=== PATIENT | female | born 1985 | race Two or more races ===

== ENCOUNTER 2023-08-19 17:07 | Inpatient (IN) | payer BC, SELFPAY ==
[2023-08-19] VITALS (20 sets, daily range): BP systolic 96–145; BP diastolic 55–92; PULSE 95–122; TEMP 36.8–39.5; O2SAT 96–100; BMI 25.6; BMI 26.7
--- NOTE | 2023-08-19 17:21 | ECG_ITS ---
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
--- NOTE | 2023-08-19 17:22 | ED.FEVER1 ---
HPI - Fever General Chief Complaint: Urogenital-Female Stated Complaint: POSS KIDNEY STONE/SEPSIS PER URGENT CARE Time Seen by Provider: 08/19/23 17:12 Source: patient Mode of arrival: walk-in Limitations: no limitations History of Present Illness HPI Narrative: 38-year-old female presents for not feeling well. Symptoms began yesterday and she has a pain in her right lower back. She went to an urgent care center and they told her she does not have a UTI after testing her urine and that she should go to the emergency department. She has had no vomiting or diarrhea. She does not complain of chest pain or cough. She has not had any antipyretics today and was noted to have a fever at triage, 100.5. Related Data Home Medications ?Medication ?Instructions ?Recorded ?Confirmed buspirone 15 mg tablet 30 mg PO BID 08/19/23 08/19/23 hydroxyzine HCl 50 mg tablet 50 mg PO Q8H PRN anxiety 08/19/23 08/19/23 trazodone 50 mg tablet 50 mg PO BEDTIME PRN insomnia 08/19/23 08/19/23 Allergies Allergy/AdvReac Type Severity Reaction Status Date / Time No Known Drug Allergies Allergy Verified 08/19/23 17:09 Review of Systems ROS Narrative A ten point review of systems is negative except as noted above. Exam Narrative Exam Narrative: Nurses note and vital signs reviewed and patient is not hypoxic. General: The patient appears well and in no apparent distress. Patient is resting comfortably on cart. Skin: Warm, dry, no pallor noted. There is no rash noted. Head: Normocephalic, atraumatic Eye: Normal conjunctiva, no drainage Ears, Nose, Mouth, and Throat: oral mucosa is moist. Nares patent. Cardiovascular: Regular Rate and Rhythm, tach Respiratory: Patient is in no distress, no accessory muscle use, lungs are clear to auscultation, no wheezing, rales or rhonchi Back: non-tender, no CVA tenderness bilaterally to percussion. GI: Minimal diffuse tenderness without distention or guarding Musculoskeletal: The patient has no evidence of calf tenderness, no pitting edema, symmetrical pulses noted bilaterally Neurological: A&O, normal speech Psychiatric: Cooperative Constitutional Vital Signs, click to edit/add: Last Vital Signs Temp 102.5 F H 08/19/23 18:44 Pulse 100 H 08/19/23 18:30 Resp 14 08/19/23 18:30 BP 129/79 08/19/23 18:30 Pulse Ox 100 08/19/23 18:00 O2 Del Method Room Air 08/19/23 17:11 Course Vital Signs Vital signs: Vital Signs Temperature 100.5 F H 08/19/23 17:11 Pulse Rate 121 H 08/19/23 17:11 Respiratory Rate 18 08/19/23 17:11 Blood Pressure 145/90 H 08/19/23 17:11 Pulse Oximetry 99 08/19/23 17:11 Oxygen Delivery Method Room Air 08/19/23 17:11 Temperature 102.5 F H 08/19/23 18:44 Pulse Rate 100 H 08/19/23 18:30 Respiratory Rate 14 08/19/23 18:30 Blood Pressure 129/79 08/19/23 18:30 Pulse Oximetry 100 08/19/23 18:00 Oxygen Delivery Method Room Air 08/19/23 17:11 MDM - Fever MDM Narrative Medical decision making narrative: COVID and influenza test are negative WBC is 12.9. Urinalysis suggest UTI and culture was ordered and she was ordered IV Rocephin. CT scan is ordered and is pending and the patient is signed out to Dr. Diallo. Differential Diagnosis Differential diagnosis: Likely fever of unknown origin, pyelonephritis, viral infection, influenza and other (COVID, UTI) Lab Data Attestation: I reviewed the patient's lab results. Labs: Lab Results 08/19/23 08/19/23 08/19/23 Range/Units 17:21 17:28 18:05 WBC 12.9 H (4.0-11.0) 10^3/uL RBC 4.23 (4.20-5.40) 10^6/uL Hgb 12.2 (12.0-16.0) g/dL Hct 37.4 (36.0-48.0) % MCV 88.4 (81.0-99.0) fL MCH 28.8 (26.7-34.0) pg MCHC 32.6 (29.9-35.2) g/dL RDW 14.0 (11.0-15.0) % Plt Count 180 (150-450) 10^3/uL MPV 9.6 (9.5-13.5) fL Neut % (Auto) 84.8 H (43.0-75.0) % Lymph % (Auto) 7.1 L (20.5-60.0) % [place] % (Auto) 7.4 (1.7-12.0) % Eos % (Auto) 0.0 L (0.9-7.0) % Baso % (Auto) 0.3 (0.2-2.0) % Neut # (Auto) 10.9 H (1.4-6.5) 10^3/uL Lymph # (Auto) 0.9 L (1.2-3.8) 10^3/uL [place] # (Auto) 1.0 H (0.3-0.8) 10^3/uL Eos # (Auto) 0.0 (0.0-0.7) 10^3/uL Baso # (Auto) 0.0 (0.0-0.1) 10^3/uL Abs Immat Gran (auto) 0.05 H (0.00-0.03) 10^3/uL Imm/Tot Granulo (auto) 0.4 (0.0-0.5) % Sodium 140 (136-145) mmol/L Potassium 3.2 L (3.5-5.1) mmol/L Chloride 102 (98-107) mmol/L Carbon Dioxide 30.6 (21.0-32.0) mmol/L Anion Gap 10.6 BUN 7.0 (7.0-18.0) mg/dL Creatinine 0.91 (0.55-1.02) mg/dL Est GFR ( Amer) >60 (>=60) Est GFR (Non-Af Amer) >60 (>=60) BUN/Creatinine Ratio 7.7 Glucose 106 (74-106) mg/dL Calcium 9.3 (8.5-10.1) mg/dL Urine Color Lt. yellow (YELLOW) Urine Clarity Clear (CLEAR) Urine pH 7.0 (5.0-9.0) Ur Specific [place] 1.010 (1.005-1.025) Urine Protein Trace (NEG/TRACE) mg/dL Urine Glucose (UA) Negative (NEGATIVE) mg/dL Urine Ketones Negative (NEGATIVE) mg/dL Urine Occult Blood Small A (NEGATIVE) Urine Nitrite Negative (NEGATIVE) Urine Bilirubin Negative (NEGATIVE) Urine Urobilinogen 1.0 (0.2-1.0) EU/dL Ur Leukocyte Esterase Large A (NEGATIVE) Urine RBC 2-5 A (0-2) #/HPF Urine WBC 10-20 A (NONE SEEN) #/HPF Ur Squamous Epith Cells Rare (NONE/RARE) #/LPF Urine Crystals None seen (None Seen) #/HPF Urine Bacteria Small A (NONE SEEN) #/HPF Urine Casts None seen (NONE SEEN) #/LPF Urine Mucus None seen (NONE SEEN) Influenza Type A Ag Negative Influenza Type B Ag Negative SARS-CoV-2 Ag (CV2AG) Negative (NEGATIVE) ECG Data Attestation: I personally reviewed and interpreted this ECG as follows: (EKG on my interpretation shows sinus tachycardia with a rate of 113.) Discharge Plan Discharge Patient Disposition: Still a Patient
[2023-08-19 17:39] LABS: Basophils Percent Auto 0.3 % (0.2-2.0); Hematocrit 37.4 % (36.0-48.0); Hemoglobin 12.2 g/dL (12.0-16.0); Immature Granulocytes Abs Auto 0.05 10^3/uL (0.00-0.03); Immature Granulocytes Pct Auto 0.4 % (0.0-0.5); Lymphocytes Absolute Auto 0.9 10^3/uL (1.2-3.8); Lymphocytes Percent Auto 7.1 % (20.5-60.0); Mean Corpuscular HGB Conc 32.6 g/dL (29.9-35.2); Mean Corpuscular Hemoglobin 28.8 pg (26.7-34.0); Mean Corpuscular Volume 88.4 fL (81.0-99.0); Mean Platelet Volume 9.6 fL (9.5-13.5); Monocytes Percent Auto 7.4 % (1.7-12.0); Neutrophils Absolute Auto 10.9 10^3/uL (1.4-6.5); Neutrophils Percent Auto 84.8 % (43.0-75.0); Platelet Count 180 10^3/uL (150-450); Red Blood Count 4.23 10^6/uL (4.20-5.40); White Blood Count 12.9 10^3/uL (4.0-11.0)
[2023-08-19] MEDS: 0.9 % SODIUM CHLORIDE 1,000 ML 1000 ML IV (17:45)
[2023-08-19 17:47] LABS: Anion Gap 10.6; BUN Creatinine Ratio 7.7; Calcium 9.3 mg/dL (8.5-10.1); Carbon Dioxide 30.6 mmol/L (21.0-32.0); Chloride 102 mmol/L (98-107); Estimated GFR (African America >60 (>=60); Estimated GFR (Non-African Ame >60 (>=60); Glucose 106 mg/dL (74-106); Potassium 3.2 mmol/L (3.5-5.1); Sodium 140 mmol/L (136-145)
[2023-08-19 17:50] LABS: Influenza Virus A Antigen Negative; Influenza Virus B Antigen Negative; Internal Control Within Normal Limits; SARS-CoV-2 Ag NEGATIVE (NEGATIVE)
[2023-08-19 18:13] LABS: Bilirubin Urine NEGATIVE (NEGATIVE); Blood Urine SMALL (NEGATIVE); Clarity Urine CLEAR (CLEAR); Color Urine LT. YELLOW (YELLOW); Glucose Urine UA NEGATIVE (NEGATIVE); Ketones Urine NEGATIVE (NEGATIVE); Leukocyte Esterase Urine LARGE (NEGATIVE); Nitrite Urine NEGATIVE (NEGATIVE); Protein Urine TRACE mg/dL (NEG/TRACE)
[2023-08-19 18:19] LABS: Bacteria Urine SMALL #/HPF (NONE SEEN); Cast Seen? NONE SEEN #/LPF (NONE SEEN); Crystals Seen? None Seen #/HPF (None Seen); Mucus Urine NONE SEEN (NONE SEEN); Squamous Epithelial Cell Urine RARE #/LPF (NONE/RARE)
[2023-08-19] MEDS: IBUPROFEN 400 MG TABLET 800 MG PO (18:44)
--- NOTE | 2023-08-19 18:48 | CT_ITS ---
[address] [address] Patient Name: GREG GOODMAN MRN: [id number] date: 1985 Sex: F Assigned Patient Location: ER Current Patient Location: ER Accession/Order Number: [id number] Exam Date: 08/19/2023 19:10 Report Date: 08/19/2023 19:55 At the request of: WINTER RITCHIE Procedure: CT abdomen pelvis w con EXAM: CT abdomen pelvis w con; [id number] REASON FOR EXAM: Fever, UTI, rule out pyelonephritis TECHNIQUE: Helical CT images of the abdomen and pelvis were obtained after the administration of IV contrast. Multiplanar reformats were generated at the scanner. Dose reduction technique used: Automated exposure control and/or adjustment of the mA and/or kV according to patient size and/or use of iterative reconstruction technique. COMPARISON: None. FINDINGS: Visualized Chest: No pleural effusion or any significant pulmonary findings. Abdomen: Liver: Mild focal fatty infiltration along the falciform ligament. Borderline hepatomegaly. Gallbladder: No calcified gallstones. No acute inflammatory changes. Bile Ducts: No significant biliary ductal dilatation. Pancreas: No mass, ductal dilatation, or inflammatory changes. Spleen: No splenomegaly or focal lesion. Adrenals: No nodules. Kidneys: -Moderate multifocal ill-defined hypoattenuation of the right kidney which is most notable in the posterior medial aspect of the right lower pole (series 3 image 47 and the upper pole (series 3 image 53). No evidence of drainable abscess. The largest area of hypoattenuation measures 1.5 cm in diameter. -No stones or hydronephrosis. -No abnormal parenchymal hypoattenuation in the left kidney. Vascular: No aortic aneurysm. Lymph Nodes: No adenopathy. Abdominal Wall: Trace fat-containing umbilical hernia. Pelvis: Probable uterine fibroid measuring 3.3 cm. No filling defect within the bladder lumen. Bowel/Peritoneal Cavity/Mesentery: -No bowel obstruction or significant ileus. -No acute inflammatory changes. -No free air or free fluid. Musculoskeletal: No acute fracture or suspicious osseous lesion. CT/CT abdomen pelvis w con IMPRESSION: Moderate multifocal pyelonephritis of the right kidney. Electronically authenticated by: DANIELLE HERNANDEZ Date: 08/19/2023 19:55
[2023-08-19] MEDS: CEFTRIAXONE 1,000 MG in 0.9 % SODIUM CHLORIDE 50 ML 100 MG IV (18:52)
[2023-08-19] MEDS: ACETAMINOPHEN 500 MG TABLET 1000 MG PO (20:08)
[2023-08-19 20:14] LABS: Acetaminophen <2.0 ug/mL (10.0-30.0)
[2023-08-19 20:46] LABS: Lactate/Lactic Acid 1.4 mmol/L (0.4-2.0)
[2023-08-19 21:02] LABS: PROCALCITONIN 0.14 ng/mL (0.00-0.50)
[2023-08-19] MEDS: KETOROLAC TROMETHAMINE 30 MG/ML VIAL 15 MG IVP (21:52)
[2023-08-19] MEDS: POTASSIUM CHLORIDE-0.45% NACL 1,000 ML 125 MEQ IV (23:34)
[2023-08-19] MEDS: POTASSIUM CHLORIDE 10 MEQ ER TABLET 40 MEQ PO (23:34)
[2023-08-20] VITALS (19 sets, daily range): BP systolic 89–115; BP diastolic 56–75; PULSE 77–114; TEMP 36.4–38.6; O2SAT 98–100
[2023-08-20 04:40] LABS: Basophils Percent Auto 0.2 % (0.2-2.0); Eosinophils Absolute Auto 0.1 10^3/uL (0.0-0.7); Eosinophils Percent Auto 0.4 % (0.9-7.0); Hemoglobin 10.4 g/dL (12.0-16.0); Immature Granulocytes Abs Auto 0.04 10^3/uL (0.00-0.03); Immature Granulocytes Pct Auto 0.4 % (0.0-0.5); Lymphocytes Absolute Auto 1.5 10^3/uL (1.2-3.8); Lymphocytes Percent Auto 13.2 % (20.5-60.0); Mean Corpuscular HGB Conc 31.5 g/dL (29.9-35.2); Mean Corpuscular Hemoglobin 28.7 pg (26.7-34.0); Mean Corpuscular Volume 91.2 fL (81.0-99.0); Mean Platelet Volume 9.8 fL (9.5-13.5); Monocytes Absolute Auto 0.9 10^3/uL (0.3-0.8); Neutrophils Absolute Auto 8.7 10^3/uL (1.4-6.5); Neutrophils Percent Auto 77.8 % (43.0-75.0); Platelet Count 151 10^3/uL (150-450); Red Blood Count 3.62 10^6/uL (4.20-5.40); Red Cell Distribution Width 14.1 % (11.0-15.0); White Blood Count 11.2 10^3/uL (4.0-11.0)
[2023-08-20 04:54] LABS: Alanine Aminotransferase 79 U/L (14-59); Albumin Globulin Ratio 0.7; Albumin Level 2.4 g/dL (3.4-5.0); Alkaline Phosphatase 72 U/L (46-116); Aspartate Amino Transferase 86 U/L (15-37); BUN Creatinine Ratio 10.5; Bilirubin Total 0.2 mg/dL (0.2-1.0); Calcium 8.4 mg/dL (8.5-10.1); Carbon Dioxide 24.7 mmol/L (21.0-32.0); Chloride 108 mmol/L (98-107); Estimated GFR (African America >60 (>=60); Estimated GFR (Non-African Ame >60 (>=60); Globulin 3.3 g/dL; Glucose 121 mg/dL (74-106); Potassium 3.7 mmol/L (3.5-5.1); Sodium 140 mmol/L (136-145); Total Protein 5.7 g/dL (6.4-8.2)
[2023-08-20] MEDS: POTASSIUM CHLORIDE-0.45% NACL 1,000 ML 125 MEQ IV ×2 (07:35→15:37)
--- NOTE | 2023-08-20 07:35 | P.HP_ITS ---
HPI H&P: HPI History of Present Illness Chief complaint: POSS KIDNEY STONE/SEPSIS URG CARE, PYELONEPHRITIS Narrative: Patient is a 38 y.o. female with past medical history of depression/anxiety. Was in her normal state of health until 2 days ago when she developed a fever, urinary urgency, burning. She presented to outside urgent Care facility where a UA was performed and she was told she did not have an infection. She continued to feel bad so presented to the ER last night. She was found to have elevated WBC's, fever of 102 degrees, and a CT scan consistent with right side pyelonephritis. UA was positive for infection and cultures including urine are pending. She was admitted with acute pyelonephritis. Overnight staff had some issues controlling her temp and she was given Toradol which helped. This morning she has improved right flank pain, no fever, and no nausea or vomiting. She has no history of pyelo or renal stones. I also discussed with patient and incidental findings of urterin fibroid of 3.3 cm and also fatty liver changes that were seen on CT. No other issues or concerns today. Opioid HPI Opioid Management Most Recent Opioid Data: Last Pain Scale 3 08/20/23 10:11 Last Pain Assessment 08/20/23 10:11 Last ORT Total Score 3 08/19/23 21:04 Last ORT Risk Category Low Risk 08/19/23 21:04 Review of Systems ROS Narrative ROS: a complete review of systems were reviewed with patient and are positive as below or listed in History of Chief Complaint. General: fever, and chills, no night sweats Head: no headache, trauma, visual changes, nausea or vomiting Skin: no reported rashes, itching or sores Eyes: no blurriness of vision Ears: no reported hearing loss, vertigo, earache, or tinnitus Throat: no sore throat, hoarseness, swelling of neck, or tongue pain Heart: no chest pain Lungs: no shortness of breath or cough GI: no diarrhea or vomiting/nausea Urinary: urinary urgency, frequency and pain, right flank pain Neuro: no numbness or tingling HEM: no bleeding issues or bruising ENDO: no thyroid problems Psych: no anxiety or depression PFSH [facility] Medical History (Updated 08/20/23 @ 10:37 by Magalie Duke DO) Major depressive disorder ?F32.9 - Major depressive disorder, single episode, unspecified (ICD-10) Surgical History H/O tubal ligation ?Z98.51 - Tubal ligation status (ICD-10) Family History Other Family history of cancer Family history of diabetes mellitus Social History Within the past year, how often did you have a drink containing alcohol: monthly or less Within the past year, how many standard drinks containing alcohol did you have on a typical day: 1 or 2 Within the past year, how often did you have six or more drinks on one occasion: less than monthly Total score: 1 Score interpretation: A score less than 3 is consistent with normal alcohol consumption. Smoking status: Never smoker Non-prescribed substance use: denies use Previous occupational history: [employer] Highest level of school completed/degree received: Associate degree: occupational, technical, vocational program Are you now , , , , never or living with a partner: In a typical week, how many times do you talk on the telephone with family, friends, or neighbors: 3 or more times per week How often do you get together with friends or relatives: 3 or more times per week Little interest or pleasure in doing things: several days Feeling down, depressed, or hopeless: several days Feel stressed/tense/nervous/anxious/difficulty sleeping: rather much Do you think of yourself as: straight/heterosexual Gender Identity: female Meds Home Medications and Allergies Home Medications ?Medication ?Instructions ?Recorded ?Confirmed ?Type buspirone 15 mg tablet 30 mg PO BID 08/19/23 08/19/23 History hydroxyzine HCl 50 mg tablet 50 mg PO DAILY PRN anxiety 08/19/23 08/20/23 History trazodone 50 mg tablet 50 mg PO BEDTIME PRN insomnia 08/19/23 08/19/23 History levomilnacipran 40 mg capsule,24 60 mg PO DAILY 08/20/23 08/20/23 History hr,extended release (Fetzima) Allergies Allergy/AdvReac Type Severity Reaction Status Date / Time No Known Drug Allergies Allergy Verified 08/19/23 17:09 Exam Narrative Exam Narrative: General: Patient is alert, and oriented to person, place and time with normal affect, proper hygiene Skin: no visible rashes, or ulcers Head: atraumatic, acephalic Eyes: PERRLA, no nystagmus present, conjunctiva clear, no scleral icterus Ears: normal gross auditory acuity Nose: symmetric, no discharge, no maxillary or frontal sinus tenderness Heart: Normal rate and rhythm, no murmurs/rubs/gallops Lungs: no audible wheezes, crackles and normal breath sounds all lung tee Abdomen: Normal audible bowel sounds, no distension, No palpable masses, no organomegaly, tenderness to palpation suprapubic Musculoskeletal: no swelling bilateral lower extremities Neuro: CN II-X grossly intact Constitutional Vital Signs, click to edit/add: Last Vital Signs Temp 97.6 F 08/20/23 04:00 Pulse 87 08/20/23 06:00 Resp 16 08/20/23 04:00 BP 89/56 08/20/23 04:00 Pulse Ox 98 08/20/23 04:00 O2 Del Method Room Air 08/20/23 04:00 Results Labs Labs: Short CBC 08/19/23 08/20/23 Range/Units 17:21 04:20 WBC 12.9 H 11.2 H (4.0-11.0) 10^3/uL Hgb 12.2 10.4 L (12.0-16.0) g/dL Hct 37.4 33.0 L (36.0-48.0) % Plt Count 180 151 (150-450) 10^3/uL BMP 08/19/23 08/20/23 17:21 04:20 Sodium 140 140 Potassium 3.2 L 3.7 Chloride 102 108 H Carbon Dioxide 30.6 24.7 BUN 7.0 9.0 Creatinine 0.91 0.86 Glucose 106 121 H Calcium 9.3 8.4 L Liver Function 08/20/23 Range/Units 04:20 Total Bilirubin 0.2 (0.2-1.0) mg/dL AST 86 H (15-37) U/L ALT 79 H (14-59) U/L Alkaline Phosphatase 72 (46-116) U/L Albumin 2.4 L (3.4-5.0) g/dL Urine 04/19/24 Range/Units 18:05 Urine Color Lt. yellow (YELLOW) Urine Clarity Clear (CLEAR) Urine pH 7.0 (5.0-9.0) Ur Specific [place] 1.010 (1.005-1.025) Urine Protein Trace (NEG/TRACE) mg/dL Urine Glucose (UA) Negative (NEGATIVE) mg/dL Assessment and Plan Assessment and Plan (1) Acute pyelonephritis due to bacteria: Assessment and Plan: as seen on CT, cultures pending, continue on Rocephin. WBC's improved from 12.9 to 11.2. (2) Sepsis: Assessment and Plan: fever, tachycardia, leukocytosis, hypotension; secondary to #1, received IVF, and IV antibiotics. Qualifiers: Sepsis type: sepsis due to unspecified organism Sepsis acute organ dysfunction status: without acute organ dysfunction Qualified Code(s): A41.9 - Sepsis, unspecified organism (3) Major depressive disorder: Assessment and Plan: continue fetzima, vistaril, buspar, trazodone. Qualifiers: Major depression recurrence: unspecified whether recurrent Active/R emission status: remission status unspecified Qualified Code(s): F32.9 - Major depressive disorder, single episode, unspecified Plan patient is a full code Patient is inpatient status and will cross 2 midnights for medically needed care for her acute pyelonephritis and sepsis.
[2023-08-20] MEDS: BUSPIRONE HCL 15 MG TABLET 30 MG PO ×2 (08:56→20:18)
[2023-08-20] MEDS: LEVOMILNACIPRAN 40 MG 40 EACH PO (08:56)
[2023-08-20] MEDS: LEVOMILNACIPRAN 20 EACH PO (08:56)
[2023-08-20] MEDS: ACETAMINOPHEN 325 MG TABLET 650 MG PO ×2 (11:08→18:46)
[2023-08-20 11:36] LABS: Alanine Aminotransferase 101 U/L (14-59); Albumin Globulin Ratio 0.7; Albumin Level 2.8 g/dL (3.4-5.0); Alkaline Phosphatase 82 U/L (46-116); Aspartate Amino Transferase 84 U/L (15-37); BUN Creatinine Ratio 10.3; Bilirubin Total 0.2 mg/dL (0.2-1.0); Calcium 8.7 mg/dL (8.5-10.1); Carbon Dioxide 26.1 mmol/L (21.0-32.0); Chloride 107 mmol/L (98-107); Estimated GFR (African America >60 (>=60); Estimated GFR (Non-African Ame >60 (>=60); Globulin 3.8 g/dL; Glucose 96 mg/dL (74-106); Potassium 4.1 mmol/L (3.5-5.1); Sodium 141 mmol/L (136-145); Total Protein 6.6 g/dL (6.4-8.2)
[2023-08-20] MEDS: KETOROLAC TROMETHAMINE 30 MG/ML VIAL IVP (14:36)
[2023-08-20] MEDS: CEFTRIAXONE 1,000 MG in 0.9 % SODIUM CHLORIDE 50 ML 100 MG IV (20:18)
[2023-08-21] VITALS (7 sets, daily range): BP systolic 110–128; BP diastolic 71–84; PULSE 86–103; TEMP 36.8; O2SAT 96–99
[2023-08-21] MEDS: POTASSIUM CHLORIDE-0.45% NACL 1,000 ML 125 MEQ IV ×2 (01:16→08:17)
[2023-08-21] MEDS: ACETAMINOPHEN 325 MG TABLET 650 MG PO ×2 (03:50→08:17)
[2023-08-21 04:57] LABS: Basophils Percent Auto 0.3 % (0.2-2.0); Eosinophils Absolute Auto 0.1 10^3/uL (0.0-0.7); Eosinophils Percent Auto 0.5 % (0.9-7.0); Hematocrit 32.2 % (36.0-48.0); Hemoglobin 10.4 g/dL (12.0-16.0); Immature Granulocytes Abs Auto 0.03 10^3/uL (0.00-0.03); Immature Granulocytes Pct Auto 0.3 % (0.0-0.5); Lymphocytes Absolute Auto 1.1 10^3/uL (1.2-3.8); Lymphocytes Percent Auto 10.3 % (20.5-60.0); Mean Corpuscular HGB Conc 32.3 g/dL (29.9-35.2); Mean Corpuscular Hemoglobin 28.9 pg (26.7-34.0); Mean Corpuscular Volume 89.4 fL (81.0-99.0); Mean Platelet Volume 9.9 fL (9.5-13.5); Monocytes Percent Auto 9.4 % (1.7-12.0); Neutrophils Absolute Auto 8.1 10^3/uL (1.4-6.5); Neutrophils Percent Auto 79.2 % (43.0-75.0); Platelet Count 165 10^3/uL (150-450); Red Cell Distribution Width 14.1 % (11.0-15.0); White Blood Count 10.2 10^3/uL (4.0-11.0)
[2023-08-21 05:24] LABS: Alanine Aminotransferase 149 U/L (14-59); Albumin Globulin Ratio 0.7; Albumin Level 2.4 g/dL (3.4-5.0); Alkaline Phosphatase 90 U/L (46-116); Anion Gap 10.5; Aspartate Amino Transferase 129 U/L (15-37); BUN Creatinine Ratio 11.3; Bilirubin Total 0.2 mg/dL (0.2-1.0); Calcium 8.7 mg/dL (8.5-10.1); Carbon Dioxide 26.3 mmol/L (21.0-32.0); Chloride 105 mmol/L (98-107); Estimated GFR (African America >60 (>=60); Estimated GFR (Non-African Ame >60 (>=60); Globulin 3.5 g/dL; Glucose 101 mg/dL (74-106); Potassium 3.8 mmol/L (3.5-5.1); Sodium 138 mmol/L (136-145); Total Protein 5.9 g/dL (6.4-8.2)
[2023-08-21] MEDS: BUSPIRONE HCL 15 MG TABLET 30 MG PO (08:18)
[2023-08-21] MEDS: LEVOMILNACIPRAN 40 MG 40 EACH PO (08:19)
[2023-08-21] MEDS: LEVOMILNACIPRAN 20 EACH PO (08:19)
--- NOTE | 2023-08-21 08:34 | PM.DS1 ---
DS: Providers Provider Date of admission: 08/19/23 20:59 Primary care physician: Non-Staff Physician, Admitting clinician: Magalie Duke Discharging clinician: Magalie Duke DS: Diagnosis Discharge Diagnosis (1) Acute pyelonephritis due to bacteria: (2) Sepsis: Qualifiers: Sepsis acute organ dysfunction status: without acute organ dysfunction Sepsis type: sepsis due to unspecified organism Qualified Code(s): A41.9 - Sepsis, unspecified organism (3) Major depressive disorder: Qualifiers: Active/Remission status: remission status unspecified Major depression recurrence: unspecified whether recurrent Qualified Code(s): F32.9 - Major depressive disorder, single episode, unspecified DS: Summary Hospital Course Hospital Course: Patient is a 38 y.o. female with past medical history of depression/anxiety. Was in her normal state of health until 2 days ago when she developed a fever, urinary urgency, burning. She presented to outside urgent Care facility where a UA was performed and she was told she did not have an infection. She was found to have elevated WBC's, fever of 102 degrees, and a CT scan consistent with right side pyelonephritis. UA was positive for infection and cultures including urine are pending. She was admitted with acute pyelonephritis. She has no history of pyelo or renal stones. I also discussed with patient and incidental findings of urterine fibroid of 3.3 cm and also fatty liver changes that were seen on CT. At the time of discharge her lactate, WBC's and renal functin all normal. Urine culture pending. She has remained afebrile for 24 hours. She has recovered faster than anticipated. She will be placed on cipro 500mg BID x 7 days. She is to not take Vistaril while taking the cipro. She is to follow up with her pcp next week and also I asked her to have them address her elevated liver function tests and fatty liver. She will return to the ER with any worsening pain or symptoms. Status at Discharge Functional status at discharge: independent ambulation Time Spent with Patient Time attestation: Total time spent providing and/or coordinating discharge services: Time spent: greater than 30 minutes Exam Narrative Exam Narrative: General: Patient is alert, and oriented to person, place and time with normal affect, proper hygiene Skin: no visible rashes, or ulcers Head: atraumatic, acephalic Eyes: PERRLA, no nystagmus present, conjunctiva clear, no scleral icterus Heart: Normal rate and rhythm, no murmurs/rubs/gallops Lungs: no audible wheezes, crackles and normal breath sounds all lung tee Abdomen: Normal audible bowel sounds, no distension, No palpable masses, no organomegaly, no rebound/guarding/ or rigidity Musculoskeletal: no swelling bilateral lower extremities Neuro: CN II-X grossly intact Constitutional Vital Signs, click to edit/add: Last Vital Signs Temp 98.2 F 08/21/23 07:46 Pulse 90 08/21/23 07:56 Resp 18 08/21/23 07:46 BP 128/80 08/21/23 07:46 Pulse Ox 99 08/21/23 07:46 O2 Del Method Room Air 08/21/23 07:46 DS: Data Data Completed and Pending Labs on day of discharge: Labs from last 24 hours 08/21/23 08/20/23 04:40 11:15 WBC 10.2 RBC 3.60 L Hgb 10.4 L Hct 32.2 L MCV 89.4 MCH 28.9 MCHC 32.3 RDW 14.1 Plt Count 165 MPV 9.9 Neut % (Auto) 79.2 H Lymph % (Auto) 10.3 L [place] % (Auto) 9.4 Eos % (Auto) 0.5 L Baso % (Auto) 0.3 Neut # (Auto) 8.1 H Lymph # (Auto) 1.1 L [place] # (Auto) 1.0 H Eos # (Auto) 0.1 Baso # (Auto) 0.0 Abs Immat Gran (auto) 0.03 Imm/Tot Granulo (auto) 0.3 Sodium 138 141 Potassium 3.8 4.1 Chloride 105 107 Carbon Dioxide 26.3 26.1 Anion Gap 10.5 12.0 BUN 8.0 9.0 Creatinine 0.71 0.87 Est GFR ( Amer) >60 >60 Est GFR (Non-Af Amer) >60 >60 BUN/Creatinine Ratio 11.3 10.3 Glucose 101 96 Calcium 8.7 8.7 Total Bilirubin 0.2 0.2 AST 129 H 84 H ALT 149 H 101 H Alkaline Phosphatase 90 82 Total Protein 5.9 L 6.6 Albumin 2.4 L 2.8 L Globulin 3.5 3.8 Albumin/Globulin Ratio 0.7 0.7 Discharge Plan Discharge Disposition: Home, Self-Care Discharge Medications: New ciprofloxacin HCl 500 mg tablet 500 mg PO BID 7 Days Qty: 14 0RF Continued buspirone 15 mg tablet 30 mg PO BID trazodone 50 mg tablet 50 mg PO BEDTIME PRN (Reason: insomnia) Fetzima 40 mg capsule,extended release 24 hr 60 mg PO DAILY Held hydroxyzine HCl 50 mg tablet 50 mg PO DAILY PRN (Reason: anxiety) Hold Instructions: Resume on 08/28/23. avoid taking while taking Cipro (antibiotic) Activity: increase activity as tolerated Diet: advance to your usual diet Print Language: Luxembourgish Patient Instructions: Kidney Infection (DC) Forms: Portal Instructions Follow Up Appointments: Please call to schedule follow up appt on Tuesday with whoever is taking over for your retired physician [phone] Discharge Date/Time: 08/21/23 09:48
--- NOTE | 2023-08-26 14:35 | CM.DCFOLLOWU ---
Person spoke with: patient How are you feeling? well How is your pain? no pain Did you understand your discharge instructions? yes Do you have any questions about your discharge instructions? no Were you given any prescriptions at discharge? yes Were you able to get your prescriptions filled? yes Do you understand how to take your medications as ordered? yes Do you have any questions about your follow up appointment and do you plan to keep your follow up appointment? no questions, had follow up today with new PCP Is there anything else that you would like to discuss? no Questions/Comments/Concerns/Other: N/A
== END 2023-08-21 09:48 | disposition home or self-care (01) | DRG 872 ==
LOC: ER 20:41 → MS 21:03
PROVIDERS: Emergency Medicine; Registered Nurse; Admitting Provider Internal Medicine; Emergency Provider Internal Medicine; Visit Provider Family Medicine
DX: A41.9 Sepsis, unspecified organism (principal); N10 Acute pyelonephritis; F41.9 Anxiety disorder, unspecified; F32.9 Major depressive disorder, single episode, unspecified; B96.89 Other specified bacterial agents as the cause of diseases classified elsewhere; K76.0 Fatty (change of) liver, not elsewhere classified; R79.89 Other specified abnormal findings of blood chemistry; Z79.899 Other long term (current) drug therapy
CPT/HCPCS: 36415; 74177; 80048; 80053; 80329; 81001; 83605; 83735; 84145; 85025; 87040; 87086; 87150; 87186; 87804; 87811; 93005; 96365; 96366; 96367; 96368; 96375; 96376; 99285; Q9967

== ENCOUNTER 2023-09-21 19:18 | Emergency (ER) | payer BC, SELFPAY ==
[2023-09-21 19:35] VITALS: BP 157/100; PULSE 109; O2SAT 99; BMI 24.7
--- NOTE | 2023-09-21 19:41 | ECG_ITS ---
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
--- NOTE | 2023-09-21 19:42 | ED_ITS ---
Documented by User: [email or web address] Leo 09/21/23 21:29 HPI - Psych General Chief Complaint: Psychiatric Symptoms Stated Complaint: Altered Mental Status Time Seen by Provider: 09/21/23 19:23 Source: Reports patient Mode of arrival: walk-in Limitations: Reports no limitations History of Present Illness HPI Narrative: Patient is a 38-year-old female who presents to the emergency department for evaluation of suicidal ideation. States for the last 3 days she has been having increasing thoughts to hurt herself. She admits to a plan of taking her home trazodone although she denies any extra ingestion of any of her medications at this time. She states that she did have an attempt in the past where she tried to overdose on pills. She states she has never been hospitalized before. She denies any other major medical problems, recent illness. She is not concerned for . Related Data Home Medications ?Medication ?Instructions ?Recorded ?Confirmed buspirone 15 mg tablet 30 mg PO BID 08/19/23 08/19/23 hydroxyzine HCl 50 mg tablet 50 mg PO DAILY PRN anxiety 08/19/23 08/20/23 trazodone 50 mg tablet 50 mg PO BEDTIME PRN insomnia 08/19/23 08/19/23 levomilnacipran 40 mg capsule,24 60 mg PO DAILY 08/20/23 08/20/23 hr,extended release (Fetzima) Previous Rx's ?Medication ?Instructions ?Recorded ciprofloxacin HCl 500 mg tablet 500 mg PO BID 7 days #14 tabs 08/21/23 Allergies Allergy/AdvReac Type Severity Reaction Status Date / Time No Known Drug Allergies Allergy Verified 09/21/23 19:38 Review of Systems ROS Constitutional Denies: fever or chills Ears, nose, mouth, and throat Denies: throat pain or nasal congestion Cardiovascular Denies: chest pain Respiratory Denies: shortness of breath Gastrointestinal Denies: nausea or vomiting Musculoskeletal Denies: back pain Integumentary/Breast Denies: rash Neurological Denies: headache Psychiatric Reports: suicidal ideation Hematologic/Lymphatic Denies: easy bruising or easy bleeding [facility] Medical History (Updated 09/22/23 @ 00:51 by Tasha Johnson MD) Major depressive disorder ?F32.9 - Major depressive disorder, single episode, unspecified (ICD-10) Surgical History H/O tubal ligation ?Z98.51 - Tubal ligation status (ICD-10) Family History Other Family history of cancer Family history of diabetes mellitus Social History Within the past year, how often did you have a drink containing alcohol: monthly or less Within the past year, how many standard drinks containing alcohol did you have on a typical day: 1 or 2 Within the past year, how often did you have six or more drinks on one occasion: less than monthly Total score: 1 Score interpretation: A score less than 3 is consistent with normal alcohol consumption. Smoking status: Never smoker Non-prescribed substance use: denies use Previous occupational history: [employer] Highest level of school completed/degree received: Associate degree: occupational, technical, vocational program Are you now , , , , never or living with a partner: In a typical week, how many times do you talk on the telephone with family, friends, or neighbors: 3 or more times per week How often do you get together with friends or relatives: 3 or more times per week Little interest or pleasure in doing things: several days Feeling down, depressed, or hopeless: several days Feel stressed/tense/nervous/anxious/difficulty sleeping: rather much Do you think of yourself as: straight/heterosexual Gender Identity: female Exam Narrative Exam Narrative: Gen.: Awake, alert, in no distress Head: Normocephalic, atraumatic ENT: Moist mucous membranes Respiratory: No respiratory distress Extremities: Moves extremities equally, no injuries noted Psych: Tearful but cooperative Neuro: No focal neuro deficit Skin: Warm, dry, intact Constitutional Vital Signs, click to edit/add: Last Vital Signs Pulse 101 H 09/21/23 20:02 Resp 16 09/21/23 20:02 BP 104/71 09/22/23 00:27 Pulse Ox 100 09/22/23 00:27 O2 Del Method Room Air 09/21/23 19:35 Course Vital Signs Vital signs: Vital Signs Pulse Rate 109 H 09/21/23 19:35 Respiratory Rate 20 09/21/23 19:35 Blood Pressure 157/100 H 09/21/23 19:35 Pulse Oximetry 99 09/21/23 19:35 Oxygen Delivery Method Room Air 09/21/23 19:35 Pulse Rate 101 H 09/21/23 20:02 Respiratory Rate 16 09/21/23 20:02 Blood Pressure 104/71 09/22/23 00:27 Pulse Oximetry 100 09/22/23 00:27 Oxygen Delivery Method Room Air 09/21/23 19:35 MDM - Psych MDM Narrative Medical decision making narrative: 2100: EKG, labs, urine specimen were obtained. Patient is found to have a UTI and was treated with Keflex in the ER. Labs and EKG were faxed to [facility] and the patient is medically cleared for psychiatric evaluation. She is still awaiting counseling services to discuss the case with her. She is calm and c ooperative in the ER. Case is turned over to attending physician at this time for disposition. Medical Records Attestation: I reviewed the patient's medical records. Lab Data Attestation: I reviewed the patient's lab results. Labs: Lab Results 09/21/23 09/21/23 Range/Units 19:51 20:50 WBC 9.4 (4.0-11.0) 10^3/uL RBC 4.44 (4.20-5.40) 10^6/uL Hgb 12.9 (12.0-16.0) g/dL Hct 39.2 (36.0-48.0) % MCV 88.3 (81.0-99.0) fL MCH 29.1 (26.7-34.0) pg MCHC 32.9 (29.9-35.2) g/dL RDW 14.1 (11.0-15.0) % Plt Count 214 (150-450) 10^3/uL MPV 9.3 L (9.5-13.5) fL Neut % (Auto) 68.4 (43.0-75.0) % Lymph % (Auto) 24.1 (20.5-60.0) % [place] % (Auto) 6.3 (1.7-12.0) % Eos % (Auto) 0.7 L (0.9-7.0) % Baso % (Auto) 0.3 (0.2-2.0) % Neut # (Auto) 6.4 (1.4-6.5) 10^3/uL Lymph # (Auto) 2.3 (1.2-3.8) 10^3/uL [place] # (Auto) 0.6 (0.3-0.8) 10^3/uL Eos # (Auto) 0.1 (0.0-0.7) 10^3/uL Baso # (Auto) 0.0 (0.0-0.1) 10^3/uL Abs Immat Gran (auto) 0.02 (0.00-0.03) 10^3/uL Imm/Tot Granulo (auto) 0.2 (0.0-0.5) % Sodium 137 (136-145) mmol/L Potassium 3.4 L (3.5-5.1) mmol/L Chloride 101 (98-107) mmol/L Carbon Dioxide 29.2 (21.0-32.0) mmol/L Anion Gap 10.2 BUN 12.0 (7.0-18.0) mg/dL Creatinine 0.95 (0.55-1.02) mg/dL Est GFR ( Amer) >60 (>=60) Est GFR (Non-Af Amer) >60 (>=60) BUN/Creatinine Ratio 12.6 Glucose 96 (74-106) mg/dL Calcium 9.1 (8.5-10.1) mg/dL Total Bilirubin 0.4 (0.2-1.0) mg/dL AST 16 (15-37) U/L ALT 17 (14-59) U/L Alkaline Phosphatase 62 (46-116) U/L Total Protein 7.2 (6.4-8.2) g/dL Albumin 4.0 (3.4-5.0) g/dL Globulin 3.2 g/dL Albumin/Globulin Ratio 1.3 Urine Color Lt. yellow (YELLOW) Urine Clarity Clear (CLEAR) Urine pH 6.0 (5.0-9.0) Ur Specific [place] >=1.030 A (1.005-1.025) Urine Protein Negative (NEG/TRACE) mg/dL Urine Glucose (UA) Negative (NEGATIVE) mg/dL Urine Ketones 15 A (NEGATIVE) mg/dL Urine Occult Blood Trace-i (NEGATIVE) Urine Nitrite Positive A (NEGATIVE) Urine Bilirubin Negative (NEGATIVE) Urine Urobilinogen 0.2 (0.2-1.0) EU/dL Ur Leukocyte Esterase Trace A (NEGATIVE) Urine RBC None seen (0-2) #/HPF Urine WBC 20-50 A (NONE SEEN) #/HPF Ur Squamous Epith Cells Many A (NONE/RARE) #/LPF Urine Crystals None seen (None Seen) #/HPF Urine Bacteria Moderate A (NONE SEEN) #/HPF Urine Casts None seen (NONE SEEN) #/LPF Urine Mucus None seen (NONE SEEN) Urine Yeast Seen A (NONE SEEN) Ur Culture Indicated? Yes Urine HCG, Qual Negative (NEGATIVE) Salicylates <2.8 (<=19.9) mg/dL Urine Opiates Screen Negative (NEGATIVE) Ur Buprenorphine Scrn Negative (NEGATIVE) Ur Oxycodone Screen Negative (NEGATIVE) Urine Methadone Screen Negative (NEGATIVE) Acetaminophen <2.0 L (10.0-30.0) ug/mL Ur Barbiturates Screen Negative (NEGATIVE) U Tricyclic Antidepress Negative (NEGATIVE) Ur Phencyclidine Scrn Negative (NEGATIVE) Ur Amphetamines Screen Negative (NEGATIVE) U Methamphetamines Scrn Negative (NEGATIVE) U Benzodiazepines Scrn Negative (NEGATIVE) Urine Cocaine Screen Negative (NEGATIVE) U Cannabinoids Screen Negative (NEGATIVE) Ethanol Quant <3 mg/dL ECG Data Attestation: I personally reviewed and interpreted this ECG as follows: (Sinus tachycardia at a rate of 101, no acute ST elevation or ectopy. EKG reviewed by attending physician) Discharge Plan Discharge Chief Complaint: Psychiatric Symptoms Clinical Impression: Urinary tract infection, Suicidal ideation, Major depressive disorder Patient Disposition: [facility] Time of Disposition Decision: 00:51 Discharge Location: [facility] Documented by User: Tasha Johnson MD 09/22/23 00:51 HPI - Psych General Chief Complaint: Psychiatric Symptoms Stated Complaint: Altered Mental Status Time Seen by Provider: 09/21/23 19:23 Related Data Home Medications ?Medication ?Instructions ?Recorded ?Confirmed buspirone 15 mg tablet 30 mg PO BID 08/19/23 08/19/23 hydroxyzine HCl 50 mg tablet 50 mg PO DAILY PRN anxiety 08/19/23 08/20/23 trazodone 50 mg tablet 50 mg PO BEDTIME PRN insomnia 08/19/23 08/19/23 levomilnacipran 40 mg capsule,24 60 mg PO DAILY 08/20/23 08/20/23 hr,extended release (Fetzima) Previous Rx's ?Medication ?Instructions ?Recorded ciprofloxacin HCl 500 mg tablet 500 mg PO BID 7 days #14 tabs 08/21/23 Allergies Allergy/AdvReac Type Severity Reaction Status Date / Time No Known Drug Allergies Allergy Verified 09/21/23 19:38 [facility] Medical History (Updated 09/22/23 @ 00:51 by Tasha Johnson MD) Major depressive disorder ?F32.9 - Major depressive disorder, single episode, unspecified (ICD-10) Surgical History H/O tubal ligation ?Z98.51 - Tubal ligation status (ICD-10) Family History Other Family history of cancer Family history of diabetes mellitus Social History Within the past year, how often did you have a drink containing alcohol: monthly or less Within the past year, how many standard drinks containing alcohol did you have on a typical day: 1 or 2 Within the past year, how often did you have six or more drinks on one occasion: less than monthly Total score: 1 Score interpretation: A score less than 3 is consistent with normal alcohol consumption. Smoking status: Never smoker Non-prescribed substance use: denies use Previous occupational history: [employer] Highest level of school completed/degree received: Associate degree: oc cupational, technical, vocational program Are you now , , , , never or living with a partner: In a typical week, how many times do you talk on the telephone with family, friends, or neighbors: 3 or more times per week How often do you get together with friends or relatives: 3 or more times per week Little interest or pleasure in doing things: several days Feeling down, depressed, or hopeless: several days Feel stressed/tense/nervous/anxious/difficulty sleeping: rather much Do you think of yourself as: straight/heterosexual Gender Identity: female Exam Constitutional Vital Signs, click to edit/add: Last Vital Signs Pulse 101 H 09/21/23 20:02 Resp 16 09/21/23 20:02 BP 104/71 09/22/23 00:27 Pulse Ox 100 09/22/23 00:27 O2 Del Method Room Air 09/21/23 19:35 Course Vital Signs Vital signs: Vital Signs Pulse Rate 109 H 09/21/23 19:35 Respiratory Rate 20 09/21/23 19:35 Blood Pressure 157/100 H 09/21/23 19:35 Pulse Oximetry 99 09/21/23 19:35 Oxygen Delivery Method Room Air 09/21/23 19:35 Pulse Rate 101 H 09/21/23 20:02 Respiratory Rate 16 09/21/23 20:02 Blood Pressure 104/71 09/22/23 00:27 Pulse Oximetry 100 09/22/23 00:27 Oxygen Delivery Method Room Air 09/21/23 19:35 MDM - Psych MDM Narrative Medical decision making narrative: 2100: EKG, labs, urine specimen were obtained. Patient is found to have a UTI and was treated with Keflex in the ER. Labs and EKG were faxed to [facility] and the patient is medically cleared for psychiatric evaluation. She is still awaiting counseling services to discuss the case with her. She is calm and cooperative in the ER. Case is turned over to attending physician at this time for disposition. This patient was seen and evaluated in conjunction with the physician business banking sales assistant. Please refer to her full H&P. She was medically purulent in this emergency department and evaluated by [facility] with recommendation for psychiatric hospitalization and stabilization. Lab Data Labs: Lab Results 09/21/23 09/21/23 Range/Units 19:51 20:50 WBC 9.4 (4.0-11.0) 10^3/uL RBC 4.44 (4.20-5.40) 10^6/uL Hgb 12.9 (12.0-16.0) g/dL Hct 39.2 (36.0-48.0) % MCV 88.3 (81.0-99.0) fL MCH 29.1 (26.7-34.0) pg MCHC 32.9 (29.9-35.2) g/dL RDW 14.1 (11.0-15.0) % Plt Count 214 (150-450) 10^3/uL MPV 9.3 L (9.5-13.5) fL Neut % (Auto) 68.4 (43.0-75.0) % Lymph % (Auto) 24.1 (20.5-60.0) % [place] % (Auto) 6.3 (1.7-12.0) % Eos % (Auto) 0.7 L (0.9-7.0) % Baso % (Auto) 0.3 (0.2-2.0) % Neut # (Auto) 6.4 (1.4-6.5) 10^3/uL Lymph # (Auto) 2.3 (1.2-3.8) 10^3/uL [place] # (Auto) 0.6 (0.3-0.8) 10^3/uL Eos # (Auto) 0.1 (0.0-0.7) 10^3/uL Baso # (Auto) 0.0 (0.0-0.1) 10^3/uL Abs Immat Gran (auto) 0.02 (0.00-0.03) 10^3/uL Imm/Tot Granulo (auto) 0.2 (0.0-0.5) % Sodium 137 (136-145) mmol/L Potassium 3.4 L (3.5-5.1) mmol/L Chloride 101 (98-107) mmol/L Carbon Dioxide 29.2 (21.0-32.0) mmol/L Anion Gap 10.2 BUN 12.0 (7.0-18.0) mg/dL Creatinine 0.95 (0.55-1.02) mg/dL Est GFR ( Amer) >60 (>=60) Est GFR (Non-Af Amer) >60 (>=60) BUN/Creatinine Ratio 12.6 Glucose 96 (74-106) mg/dL Calcium 9.1 (8.5-10.1) mg/dL Total Bilirubin 0.4 (0.2-1.0) mg/dL AST 16 (15-37) U/L ALT 17 (14-59) U/L Alkaline Phosphatase 62 (46-116) U/L Total Protein 7.2 (6.4-8.2) g/dL Albumin 4.0 (3.4-5.0) g/dL Globulin 3.2 g/dL Albumin/Globulin Ratio 1.3 Urine Color Lt. yellow (YELLOW) Urine Clarity Clear (CLEAR) Urine pH 6.0 (5.0-9.0) Ur Specific [place] >=1.030 A (1.005-1.025) Urine Protein Negative (NEG/TRACE) mg/dL Urine Glucose (UA) Negative (NEGATIVE) mg/dL Urine Ketones 15 A (NEGATIVE) mg/dL Urine Occult Blood Trace-i (NEGATIVE) Urine Nitrite Positive A (NEGATIVE) Urine Bilirubin Negative (NEGATIVE) Urine Urobilinogen 0.2 (0.2-1.0) EU/dL Ur Leukocyte Esterase Trace A (NEGATIVE) Urine RBC None seen (0-2) #/HPF Urine WBC 20-50 A (NONE SEEN) #/HPF Ur Squamous Epith Cells Many A (NONE/RARE) #/LPF Urine Crystals None seen (None Seen) #/HPF Urine Bacteria Moderate A (NONE SEEN) #/HPF Urine Casts None seen (NONE SEEN) #/LPF Urine Mucus None seen (NONE SEEN) Urine Yeast Seen A (NONE SEEN) Ur Culture Indicated? Yes Urine HCG, Qual Negative (NEGATIVE) Salicylates <2.8 (<=19.9) mg/dL Urine Opiates Screen Negative (NEGATIVE) Ur Buprenorphine Scrn Negative (NEGATIVE) Ur Oxycodone Screen Negative (NEGATIVE) Urine Methadone Screen Negative (NEGATIVE) Acetaminophen <2.0 L (10.0-30.0) ug/mL Ur Barbiturates Screen Negative (NEGATIVE) U Tricyclic Antidepress Negative (NEGATIVE) Ur Phencyclidine Scrn Negative (NEGATIVE) Ur Amphetamines Screen Negative (NEGATIVE) U Methamphetamines Scrn Negative (NEGATIVE) U Benzodiazepines Scrn Negative (NEGATIVE) Urine Cocaine Screen Negative (NEGATIVE) U Cannabinoids Screen Negative (NEGATIVE) Ethanol Quant <3 mg/dL Discharge Plan Discharge Chief Complaint: Psychiatric Symptoms Clinical Impression: Urinary tract infection, Suicidal ideation, Major depressive disorder Patient Disposition: [facility] Time of Disposition Decision: 00:51 Discharge Location: [facility]
[2023-09-21 19:59] LABS: Basophils Percent Auto 0.3 % (0.2-2.0); Eosinophils Absolute Auto 0.1 10^3/uL (0.0-0.7); Eosinophils Percent Auto 0.7 % (0.9-7.0); Hematocrit 39.2 % (36.0-48.0); Hemoglobin 12.9 g/dL (12.0-16.0); Immature Granulocytes Abs Auto 0.02 10^3/uL (0.00-0.03); Immature Granulocytes Pct Auto 0.2 % (0.0-0.5); Lymphocytes Absolute Auto 2.3 10^3/uL (1.2-3.8); Lymphocytes Percent Auto 24.1 % (20.5-60.0); Mean Corpuscular HGB Conc 32.9 g/dL (29.9-35.2); Mean Corpuscular Hemoglobin 29.1 pg (26.7-34.0); Mean Corpuscular Volume 88.3 fL (81.0-99.0); Mean Platelet Volume 9.3 fL (9.5-13.5); Monocytes Absolute Auto 0.6 10^3/uL (0.3-0.8); Monocytes Percent Auto 6.3 % (1.7-12.0); Neutrophils Absolute Auto 6.4 10^3/uL (1.4-6.5); Neutrophils Percent Auto 68.4 % (43.0-75.0); Platelet Count 214 10^3/uL (150-450); Red Blood Count 4.44 10^6/uL (4.20-5.40); Red Cell Distribution Width 14.1 % (11.0-15.0); White Blood Count 9.4 10^3/uL (4.0-11.0)
[2023-09-21 20:02] VITALS: PULSE 101
[2023-09-21 20:24] LABS: Anion Gap 10.2; Carbon Dioxide 29.2 mmol/L (21.0-32.0); Chloride 101 mmol/L (98-107); Glucose 96 mg/dL (74-106); Potassium 3.4 mmol/L (3.5-5.1); Salicylate <2.8 mg/dL (<=19.9); Sodium 137 mmol/L (136-145)
[2023-09-21 20:25] LABS: Alanine Aminotransferase 17 U/L (14-59); Albumin Globulin Ratio 1.3; Alkaline Phosphatase 62 U/L (46-116); Aspartate Amino Transferase 16 U/L (15-37); BUN Creatinine Ratio 12.6; Bilirubin Total 0.4 mg/dL (0.2-1.0); Calcium 9.1 mg/dL (8.5-10.1); Estimated GFR (African America >60 (>=60); Estimated GFR (Non-African Ame >60 (>=60); Globulin 3.2 g/dL; Total Protein 7.2 g/dL (6.4-8.2)
[2023-09-21 20:26] LABS: Acetaminophen <2.0 ug/mL (10.0-30.0); Ethanol <3 mg/dL
[2023-09-21 20:55] LABS: Bilirubin Urine NEGATIVE (NEGATIVE); Blood Urine TRACE-I (NEGATIVE); Clarity Urine CLEAR (CLEAR); Color Urine LT. YELLOW (YELLOW); Glucose Urine UA NEGATIVE (NEGATIVE); Ketones Urine 15 mg/dL (NEGATIVE); Leukocyte Esterase Urine TRACE (NEGATIVE); Nitrite Urine POSITIVE (NEGATIVE); Protein Urine NEGATIVE (NEG/TRACE); Specific Gravity Urine >=1.030 (1.005-1.025); Urobilinogen Urine 0.2 EU/dL (0.2-1.0)
[2023-09-21 20:59] LABS: Urine Microscopic Indicated YES
[2023-09-21 21:02] LABS: RBC Urine NONE SEEN #/HPF (0-2); WBC Urine 20-50 #/HPF (NONE SEEN)
[2023-09-21 21:03] LABS: Bacteria Urine MODERATE #/HPF (NONE SEEN); Cast Seen? NONE SEEN #/LPF (NONE SEEN); Crystals Seen? None Seen #/HPF (None Seen); Mucus Urine NONE SEEN (NONE SEEN); Squamous Epithelial Cell Urine MANY #/LPF (NONE/RARE)
[2023-09-21 21:04] LABS: Urine Culture Indicated YES
[2023-09-21 21:06] LABS: Amphetamine Screen Urine NEGATIVE (NEGATIVE); Benzodiazepines Screen Urine NEGATIVE (NEGATIVE); Cannabinoid Screen Urine NEGATIVE (NEGATIVE); Cocaine Screen Urine NEGATIVE (NEGATIVE); Methamphetamines Screen Urine NEGATIVE (NEGATIVE); Opiate Screen Urine NEGATIVE (NEGATIVE); Phencyclidine Screen Urine NEGATIVE (NEGATIVE)
[2023-09-21 21:07] LABS: Barbiturates Screen Urine NEGATIVE (NEGATIVE); Buprenorphine Screen Urine NEGATIVE (NEGATIVE); Methadone Screen Urine NEGATIVE (NEGATIVE); Oxycodone Screen Urine NEGATIVE (NEGATIVE); Tricyclic Antidepressant Urine NEGATIVE (NEGATIVE)
[2023-09-21] MEDS: CEPHALEXIN 500 MG CAPSULE PO (21:07)
[2023-09-21 21:23] LABS: HCG Qualitative Urine* NEGATIVE (NEGATIVE); Internal Control Within Normal Limits
[2023-09-22 00:27] VITALS: BP 104/71; O2SAT 100
== END 2023-09-22 01:11 ==
PROVIDERS: Physician Assistant; Emergency Provider Emergency Medicine
DX: F32.9 Major depressive disorder, single episode, unspecified (principal); R45.851 Suicidal ideations; N39.0 Urinary tract infection, site not specified; Z98.51 Tubal ligation status
CPT/HCPCS: 36415; 80053; 80179; 80307; 80320; 80329; 81001; 84703; 85025; 87086; 93005; 99285